=== PATIENT | female | born 1990 | race African-American/Black ===

== ENCOUNTER → 2018-02-28 | Outpatient (CLI) | payer MEDICAID ==
[2018-02-28 12:35] LABS: T.VAGINALIS (WET MOUNT) TRICHOMONAS SEEN
[2018-02-28 12:36] LABS: EPITHELIALS (WET MOUNT) 4+ EPITHELIALS SEEN; RBCS (WET MOUNT) NO RBCS SEEN; WBCS (WET MOUNT) FEW WBCS SEEN; YEAST (WET MOUNT) NO YEAST SEEN
[2018-02-28 14:02] LABS: CHLAM PCR NOT DETECTED (NOT DETECT); GON PCR NOT DETECTED (NOT DETECT)
== END ==
LOC: LAB 12:11
PROVIDERS: ATTEND Nurse Practitioner Acute Care
DX: N89.8 Other specified noninflammatory disorders of vagina (principal)
CPT/HCPCS: 87210; 87491; 87591

== ENCOUNTER 2018-03-29 05:45 | Day surgery (SDC) | payer MEDICAID ==
[2018-03-27 12:25] LABS: HEMATOCRIT 42.8 % (36.0-47.0); HEMOGLOBIN 14.3 g/dL (12.0-15.5); MEAN CORPUSCULAR HEMOGLOBIN 28.6 pg (27.0-33.4); MEAN CORPUSCULAR HGB CONC 33.3 g/dL (32.0-36.0); MEAN CORPUSCULAR VOLUME 86 fl (80-97); PLATELET COUNT 408 10^3/uL (150-450); RED CELL DISTRIBUTION WIDTH 13.1 % (11.5-14.0); WHITE BLOOD COUNT 11.9 10^3/uL (4.0-10.5)
[2018-03-27 12:26] LABS: APPEARANCE,URINE CLEAR; BILIRUBIN,URINE NEGATIVE (NEGATIVE); COLOR,URINE YELLOW; GLUCOSE, URINE NEGATIVE (NEGATIVE); KETONES,URINE NEGATIVE (NEGATIVE); LEUKOCYTE ESTERASE,URINE NEGATIVE (NEGATIVE); NITRITE,URINE NEGATIVE (NEGATIVE); PROTEIN,URINE NEGATIVE (NEGATIVE); URINE SPECIFIC GRAVITY 1.021; UROBILINOGEN,URINE NEGATIVE mg/dL (<2.0)
[2018-03-27 12:53] LABS: ANION GAP 14 (5-19); BLOOD UREA NITROGEN 11 mg/dL (7-20); CARBON DIOXIDE 24 mmol/L (22-30); CHLORIDE 106 mmol/L (98-107); GLUCOSE 76 mg/dL (75-110); POTASSIUM 4.5 mmol/L (3.6-5.0); SODIUM 144.2 mmol/L (137-145)
--- NOTE | 2018-03-27 14:08 | EKG REPORT ---
SEVERITY:- NORMAL ECG - SINUS RHYTHM : Confirmed by: Tai Almanza MD 27-Mar-2018 14:07:45
--- NOTE | 2018-03-28 15:26 | RADIOLOGY REPORT (SQ) ---
EXAM DESCRIPTION: CHEST PA/LATERAL COMPLETED DATE/TIME: 03/27/2018 12:00 pm REASON FOR STUDY: PRE OP COMPARISON: None. EXAM PARAMETERS: NUMBER OF VIEWS: Two view. TECHNIQUE: Frontal and lateral radiographic views of the chest acquired. RADIATION DOSE: N/A LIMITATIONS: None. FINDINGS: LUNGS AND PLEURA: No opacities, masses or pneumothorax. No pleural effusion. MEDIASTINUM AND HILAR STRUCTURES: No masses or contour abnormalities. HEART AND VASCULATURE: Heart normal size. No evidence for failure. BONES: No acute findings. HARDWARE: None OTHER: No other significant finding. IMPRESSION: No acute cardiopulmonary findings. TECHNICAL DOCUMENTATION: JOB ID: [id number] [employer]- All Rights Reserved Reading location - IP/workstation name: [email or web address]
[~2018-03-29 05:45] MED LIST: CEFAZOLIN 1 GM/D5W RTU 1 GM/50 ML RTUPB IV PRN; LACTATED RINGERS 1000 ML IV PRN; LIDOCAINE 0.5% INJ-PF (5 MG/ML) 50 ML SDV SUBCUT PRN
[2018-03-29] MEDS ORDERED: MIDAZOLAM 2 MG/2 ML INJ ONE (06:51)
[2018-03-29] MEDS ORDERED: FENTANYL CITRATE INJ/PF 100 MCG/2 ML AMPUL ONE ×2 (06:51→09:28)
[2018-03-29] MEDS ORDERED: PROPOFOL INJ 200 MG/20 ML VIAL IV ONE (06:52)
[2018-03-29] MEDS ORDERED: HYDROMORPHONE HCL INJ/PF 2 MG/ML AMPULE ONE (06:52)
[2018-03-29] MEDS ORDERED: ACETAMINOPHEN 100 ML IV ONE (06:52)
[2018-03-29] MEDS ORDERED: BUPIVACAINE INJ/PF LIPOSOME/PF 266 MG/20 ML SDV ONE ×2 (07:12→08:20)
[2018-03-29] MEDS ORDERED: LIDOCAINE 1%/EPINEPHRINE INJ 20 ML VIAL ONE (07:28)
[2018-03-29] MEDS ORDERED: ONDANSETRON HCL INJ/PF 4 MG/2 ML SDV IV PRN ×2 (07:52→20:13)
[2018-03-29] MEDS ORDERED: FENTANYL CITRATE INJ/PF 100 MCG/2 ML AMPUL IV PRN ×3 (07:52)
[2018-03-29] MEDS ORDERED: MEPERIDINE HCL/PF INJ 25 MG/1 ML DISP.SYRIN IV PRN (07:52)
[2018-03-29] MEDS ORDERED: PROMETHAZINE HCL INJ 25 MG/1 ML VIAL IV PRN ×2 (07:52)
[2018-03-29] MEDS ORDERED: OXYCODONE-ACETAMINOPHEN 5-325 MG TABLET PO PRN ×4 (07:52→09:27)
[2018-03-29] MEDS ORDERED: DIPHENHYDRAMINE HCL 50 MG/ML VIAL IV PRN (07:52)
[2018-03-29] MEDS ORDERED: FENTANYL CITRATE INJ/PF 250 MCG/5 ML AMPULE ONE (08:00)
--- NOTE | 2018-03-29 08:39 | OPERATIVE REPORT E ---
Operative Report NAME: BALTAZAR SORENSEN : 1990 AGE: 27Y DATE OF SURGERY: 03/29/2018 ROOM: OR PREOPERATIVE DIAGNOSES: 1. Menorrhagia. 2. Uterine leiomyoma. POSTOPERATIVE DIAGNOSES: 1. Menorrhagia. 2. Uterine leiomyoma. PROCEDURE: 1. Mini laparotomy. 2. Multiple myomectomy. SURGEON: BRYAN POLANCO M.D. ANESTHESIA: General endotracheal. COMPLICATIONS: None. FINDINGS: Multiple small leiomyomata, greatest approximately 2 cm, intramural location. Normal tubes and ovaries are appreciated. DESCRIPTION OF PROCEDURE: Patient was taken to the operating room, placed in modified lithotomy position where adequate anesthesia was ascertained, prepped and draped in the usual manner for exploratory laparotomy. A Mckenzie catheter was inserted preop. Surgical time out was performed and antibiotics had been given. Through a mini laparotomy incision inclusive of an old scar, extended through subcutaneous fat and fascia, the dense adhesions were encountered and the peritoneum was entered without difficulty using blunt dissection. Incision was extended laterally and the uterus brought into the operative field. Multiple fibroids were palpated and via separate incisions they were removed, 2 posteriorly and 1 anteriorly, with good hemostasis assured after infiltration of the area with 1% lidocaine with epinephrine. Good hemostasis was assured. The uterus was replaced in the abdominal cavity, copiously irrigated. The rectus fascia was closed with #1 PDS suture in a running fashion. Exparel was used in a diluted fashion in the fascial area for analgesia. Skin was closed with skin meliza. At the conclusion of the procedure all sponge, needle, and instrument counts were correct. DICTATING PHYSICIAN: BRYAN POLANCO M.D. [id number] PHY#: [id number] ID: [id number] JOB#: [id number] ACCT: [id number] cc:BRYAN POLANCO M.D. >
[2018-03-29] MEDS ORDERED: RINGERS SOLUTION,LACTATED 1,000 ML IV PRN (08:41)
[2018-03-29] MEDS ORDERED: MORPHINE SULFATE 10 MG/ML INJ INJ PRN ×4 (08:42→09:28)
[2018-03-29] MEDS ORDERED: MORPHINE SULFATE 10 MG/ML INJ IM PRN ×2 (08:42→09:29)
[2018-03-29] MEDS ORDERED: PROMETHAZINE HCL INJ 25 MG/1 ML VIAL IM PRN (09:29)
[2018-03-29] MEDS: PROMETHAZINE HCL INJ 25 MG/1 ML VIAL IM PRN ×2 (10:50→20:25)
[2018-03-29] MEDS ORDERED: DEXAMETHASONE SOD PHOSPHATE INJ 4 MG/1 ML VIAL ONE (10:55)
[2018-03-29] MEDS ORDERED: ROCURONIUM BROMIDE INJ 50 MG/5 ML VIAL IV ONE (10:55)
[2018-03-29] MEDS ORDERED: ONDANSETRON HCL INJ/PF 4 MG/2 ML SDV ONE (10:55)
[2018-03-29] MEDS ORDERED: METOCLOPRAMIDE HCL INJ/PF 10 MG/2 ML SDV ONE (10:55)
[2018-03-29] MEDS ORDERED: LIDOCAINE 2% INJ-PF (20 MG/ML) 2 ML AMPUL ONE (10:55)
[2018-03-29] MEDS ORDERED: GLYCOPYRROLATE INJ 0.4 MG/2 ML VIAL ONE (10:55)
[2018-03-29] MEDS ORDERED: CEFAZOLIN 1 GM/D5W RTU 1 GM/50 ML RTUPB IV SCH (12:00)
[2018-03-29] MEDS: OXYCODONE-ACETAMINOPHEN 5-325 MG TABLET PO PRN ×2 (12:43→16:24)
[2018-03-29] MEDS: CEFAZOLIN 1 GM/D5W RTU 1 GM/50 ML RTUPB IV SCH ×2 (13:30→18:03)
[2018-03-30] MEDS: OXYCODONE-ACETAMINOPHEN 5-325 MG TABLET PO PRN ×2 (04:00→08:09)
[2018-03-30 08:40] VITALS: BP 120/77
== END 2018-03-30 10:56 | disposition home or self-care (01) ==
LOC: UNDOADMIN 05:45 → OROUT 05:45 → INOR 05:45 → EDSTATUS 07:15 → 2S 10:21 → INOR 10:21 → 2S 10:21 → UNDODISIN 03-30 10:56 → OROUT 03-30 10:56
PROVIDERS: ATTEND Specialist
DX: D25.1 Intramural leiomyoma of uterus (principal); K66.0 Peritoneal adhesions (postprocedural) (postinfection); J45.909 Unspecified asthma, uncomplicated; F17.210 Nicotine dependence, cigarettes, uncomplicated; N92.0 Excessive and frequent menstruation with regular cycle
CPT/HCPCS: 58140; 93005; 86900; 86901; 36415; 86850; 85027; 81025; 80048; 81001; 88305 ×2; 71046; 94799; 93010; J2250; J0690; J3490 ×4; J1100; J3010 ×2; J2765; J2270; J1170; J2550; J2405; J7120; J2704; J0131; C9290; 840

== ENCOUNTER 2018-08-27 12:10 | Emergency (ER) | payer MEDICAID ==
[2018-08-27 12:17] VITALS: BP 119/63
[2018-08-27] MEDS ORDERED: LIDOCAINE 5% (700 MG) TRANSDERMAL ADH..PATCH TP ONE (12:44)
--- NOTE | 2018-08-27 12:47 | ER Document Report ---
HPI - HPI Patient complains to provider of: Eft breast pain Onset/Duration: Persistent Quality of pain: Achy Pain Level: 5 Context: Patient presents complaining of a 3-day history of left lateral breast tenderness. Patient denies any injury to the breast. Patient denies any fever. Patient denies any nipple drainage or discharge. Patient denies any chest pain difficulty breathing cough or cold symptoms. Patient denies any known family history of breast cancer. Associated Symptoms: Other - Breast tenderness. denies: Fever Exacerbated by: Denies Relieved by: Denies Similar symptoms previously: No Recently seen / treated by doctor: No - ROS ROS below otherwise negative: Yes Systems Reviewed and Negative: Yes All other systems reviewed and negative - CARDIOVASCULAR Cardiovascular: REPORTS: Chest pain - Left breast - RESPIRATORY Respiratory: DENIES: Coughing - GASTROINTESTINAL Gastrointestinal: DENIES: Abdominal Pain, Nausea, Patient vomiting - REPRODUCTIVE Reproductive: DENIES: : - MUSCULOSKELETAL Musculoskeletal: DENIES: Back Pain - DERM Skin Color: Normal Skin Problems: None Past Medical History - General Information source: Patient - Social History Smoking Status: Current Every Day Smoker Smoking Education Provided: Yes Frequency of alcohol use: None Drug Abuse: None Occupation: None Family History: Reviewed & Not Pertinent Patient has suicidal ideation: No Patient has homicidal ideation: No - Past Medical History Cardiac Medical History: Denies: Hx Coronary Artery Disease, Hx Heart Attack, Hx Hypertension Pulmonary Medical History: Reports: Hx Asthma Denies: Hx Bronchitis, Hx COPD, Hx Pneumonia, Hx Tuberculosis Neurological Medical History: Denies: Hx Cerebrovascular Accident, Hx Seizures Renal/ Medical History: Reports: Hx Ovarian Cysts. Denies: Hx Peritoneal Dialysis Musculoskeletal Medical History: Reports Hx Arthritis - hands Psychiatric Medical History: Reports: Hx Anxiety Past Surgical History: Reports: Hx Section, Hx Gynecologic Surgery - Partial removal of left ovary. Laparoscopic surgery for a hemorrhagic left - Immunizations Immunizations up to date: No Hx Diphtheria, Pertussis, Tetanus Vaccination: No Vertical Provider Document - CONSTITUTIONAL Agree With Documented VS: Yes Exam Limitations: No Limitations General Appearance: WD/WN, No Apparent Distress - INFECTION CONTROL TRAVEL OUTSIDE OF THE [place] IN LAST 30 DAYS: No - HEENT HEENT: Atraumatic, Normocephalic - NECK Neck: Normal Inspection, Supple. negative: Lymphadenopathy-Left, Lymphadenopathy-Right - RESPIRATORY Respiratory: Breath Sounds Normal, No Respiratory Distress. negative: Chest Non -Tender - Left lateral breast tenderness from the 12:00 to 4 o'clock position, no erythema swelling or abnormal masses appreciated. Normal contour to the breast. No nipple discharge - CARDIOVASCULAR Cardiovascular: Regular Rate, Regular Rhythm - BACK Back: Normal Inspection - MUSCULOSKELETAL/EXTREMETIES Musculoskeletal/Extremeties: MAEW - NEURO Level of Consciousness: Awake, Alert, Appropriate Motor/Sensory: No Motor Deficit - DERM Integumentary: Warm, Dry, No Rash Course - Re-evaluation Re-evalutation: 08/27/18 12:45 Patient without any findings worrisome for breast abscess, no concern for cellulitis. Pain is localized to the breast and not to the chest wall. Patient encouraged to keep her follow-up appointment with her primary doctor as scheduled. Discussed worsening symptoms that patient should return for. - Vital Signs Vital signs: Temp Pulse Resp BP Pulse Ox 98.5 F 88 119/63 100 08/27/18 12:15 08/27/18 12:15 08/27/18 12:15 08/27/18 12:15 Discharge - Discharge Clinical Impression: Breast pain, left Condition: Stable Disposition: HOME, SELF-CARE Instructions: Breast Lumps ([facility]) Additional Instructions: Return immediately for any new or worsening symptoms Followup with your primary care provider, call tomorrow to make a followup appointment Your primary doctor can order an outpatient ultrasound or mammogram for further evaluation of breast pain. Prescriptions: Tramadol HCl [Ultram 50 mg Tablet] 50 mg PO ASDIR PRN #12 tablet PRN Reason: Forms: Smoking Cessation Education Referrals: SHIVANI JOSÉ MD [Primary Care Provider] - Follow up as needed
== END 2018-08-27 12:53 | disposition home or self-care (01) ==
LOC: ER 12:10
DX: N64.4 Mastodynia (principal); F17.200 Nicotine dependence, unspecified, uncomplicated
CPT/HCPCS: 99283; J3490

== ENCOUNTER → 2018-09-12 | Outpatient (CLI) | payer MEDICAID ==
--- NOTE | 2018-09-12 13:31 | WOMENS IMAGING REPORT ---
EXAM DESCRIPTION: U/S BREAST UNILATERAL, COMPL COMPLETED DATE/TIME: 09/12/2018 9:24 am REASON FOR STUDY: UNILATER BREAST U/S /N64.4 LEFT BREAST PAIN N64.4 MASTODYNIA COMPARISON: None. TECHNIQUE: Real-time and static grayscale imaging performed of the left breast targeted to the area of clinical/mammographic concern. Selected color Doppler images recorded. LIMITATIONS: None. FINDINGS: MASS: No mass identified. Normal glandular tissue. OTHER: No other significant finding. IMPRESSION: No suspicious findings detected by ultrasound. BIRAD: 1 Negative. RECOMMENDATION: RECOMMENDED FOLLOW-UP: Follow-up as clinically indicated. COMMENT: The [employer] (A[employer]) has developed recommendations for screening MRI of the breasts in certain patient populations, to be used in conjunction with mammography. Breast MRI s urveillance may be appropriate for women with more than 20% lifetime risk of developing breast cancer as determined by genetic testing, significant family history of the disease, or history of mantle r adiation for Hodgkins Disease. ACR Practice Guidelines 2008. TECHNICAL DOCUMENTATION: JOB ID: [id number] [employer]- All Rights Reserved Reading location - IP/workstation name: [email or web address]
== END ==
LOC: WI 08:30
PROVIDERS: ATTEND Family Medicine
DX: N64.4 Mastodynia (principal)
CPT/HCPCS: 76641

== ENCOUNTER 2018-09-15 17:36 | Emergency (ER) | payer OTHER, MEDICAID ==
[2018-09-15] MEDS ORDERED: KETOROLAC TROMETHAMINE 60 MG/2 ML SDV IM ONE (20:50)
[2018-09-15] MEDS ORDERED: METHOCARBAMOL 500 MG TABLET PO ONE (20:50)
[2018-09-15] MEDS ORDERED: LIDOCAINE 5% (700 MG) TRANSDERMAL ADH..PATCH TP ONE (20:50)
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
[2018-09-15 20:57] LABS: APPEARANCE,URINE CLEAR; BILIRUBIN,URINE NEGATIVE (NEGATIVE); COLOR,URINE YELLOW; GLUCOSE, URINE NEGATIVE (NEGATIVE); KETONES,URINE NEGATIVE (NEGATIVE); LEUKOCYTE ESTERASE,URINE TRACE (NEGATIVE); NITRITE,URINE NEGATIVE (NEGATIVE); PROTEIN,URINE NEGATIVE (NEGATIVE); URINE SPECIFIC GRAVITY 1.024; UROBILINOGEN,URINE NEGATIVE mg/dL (<2.0)
--- NOTE | 2018-09-15 21:37 | RADIOLOGY REPORT (SQ) ---
EXAM DESCRIPTION: XR LUMBAR SPINE ANTEROPOSTERIOR, LATERAL, AND OBLIQUES COMPLETED DATE/TME: 09/15/2018 20:50 CLINICAL HISTORY: 28 years, Female, low back pain COMPARISON: EXAM DESCRIPTION: CLINICAL HISTORY: low back pain COMPARISON: None FINDINGS: Five view(s) submitted. No fracture or dislocation is identified. Bone marrow attenuation is unremarkable. No radiopaque foreign body is identified. IMPRESSION: No acute fracture or dislocation. NUMBER OF VIEWS: TECHNIQUE: LIMITATIONS: None. FINDINGS: IMPRESSION: 2010 [facility] [employer]- All Rights Reserved
[2018-09-15 22:06] VITALS: BP 125/75
== END 2018-09-15 22:06 | disposition home or self-care (01) ==
LOC: ER 17:36
DX: M54.5 Low back pain (principal); F17.210 Nicotine dependence, cigarettes, uncomplicated; Z88.6 Allergy status to analgesic agent
CPT/HCPCS: 99406; 99284; 96372; 81001; 72110; J1885

== ENCOUNTER → 2019-07-18 | Outpatient (CLI) | payer MEDICAID ==
--- NOTE | 2019-07-18 19:19 | RADIOLOGY REPORT (SQ) ---
EXAM DESCRIPTION: ANKLE LEFT COMPLETE COMPLETED DATE/TIME: 07/18/2019 6:56 pm REASON FOR STUDY: M25.572 PAIN IN LEFT ANKLE AND JOINTS OF LEFT FOOT M25.572 PAIN IN LEFT ANKLE AND JOINTS OF LEFT FOOT COMPARISON: None. NUMBER OF VIEWS: Three views. TECHNIQUE: AP, lateral, and oblique radiographic images acquired of the left ankle. LIMITATIONS: None. FINDINGS: MINERALIZATION: Normal. BONES: No acute fracture or dislocation. No worrisome bone lesions. JOINTS: No effusions. SOFT TISSUES: No soft tissue swelling. No foreign body. OTHER: No other significant finding. IMPRESSION: NEGATIVE STUDY OF THE LEFT ANKLE. NO RADIOGRAPHIC EVIDENCE OF ACUTE INJURY. TECHNICAL DOCUMENTATION: JOB ID: [id number] [employer]- All Rights Reserved Reading location - IP/workstation name: [email or web address]
== END ==
LOC: RAD 18:37
PROVIDERS: ATTEND Nurse Practitioner Family
DX: M25.572 Pain in left ankle and joints of left foot (principal)

== ENCOUNTER 2019-08-12 11:13 | Emergency (ER) | payer MEDICAID ==
--- NOTE | 2019-08-12 11:37 | ER Document Report ---
ED Medical Screen (RME) - General Chief Complaint: Nausea/Vomiting Stated Complaint: THROWING UP BLOOD Time Seen by Provider: 08/12/19 11:32 Primary Care Provider: SHIVANI JOSÉ MD [Primary Care Provider] - Follow up as needed Mode of Arrival: Ambulatory Information source: Patient Notes: 28-year-old female presents emergency department with reports of episodes of twice vomiting with blood noted. Reports last time she vomited was pure blood. Denies past medical history of ulcers. Patient is also 4 to 8 weeks. G2, P1. Complains of low abdominal pain denies pain with void. Denies fever. Reports no black stools noted. I have greeted and performed a rapid initial assessment of this patient. A comprehensive ED assessment and evaluation of the patient, analysis of test results and completion of the medical decision making process will be conducted by additional ED providers. Dictation of this chart was performed using voice recognition software; therefore, there may be some unintended grammatical errors. TRAVEL OUTSIDE OF THE [place] IN LAST 30 DAYS: No - Related Data Allergies/Adverse Reactions: ibuprofen [From Motrin] Allergy (Mild, Verified 03/27/18 11:11) abd pain Past Medical History - Past Medical History Cardiac Medical History: Denies: Hx Coronary Artery Disease, Hx Heart Attack, Hx Hypertension Pulmonary Medical History: Reports: Hx Asthma Denies: Hx Bronchitis, Hx COPD, Hx Pneumonia, Hx Tuberculosis Neurological Medical History: Denies: Hx Cerebrovascular Accident, Hx Seizures Renal/ Medical History: Reports: Hx Ovarian Cysts. Denies: Hx Peritoneal Dialysis Musculoskeltal Medical History: Reports Hx Arthritis - hands Psychiatric Medical History: Reports: Hx Anxiety Past Surgical History: Reports: Hx Section, Hx Gynecologic Surgery - Partial removal of left ovary. Laparoscopic surgery for a hemorrhagic left - Immunizations Immunizations up to date: No Hx Diphtheria, Pertussis, Tetanus Vaccination: No History of Influenza Vaccine for 08/2017 - 01/2018 Season: No Physical Exam - Vital signs Vitals: Temp Pulse Resp BP Pulse Ox 98.2 F 96 16 113/60 99 08/12/19 11:17 08/12/19 11:17 08/12/19 11:17 08/12/19 11:17 08/12/19 11:17 Course - Vital Signs Vital signs: Temp Pulse Resp BP Pulse Ox 98.2 F 96 16 113/60 99 08/12/19 11:17 08/12/19 11:17 08/12/19 11:17 08/12/19 11:17 08/12/19 11:17 Doctor's Discharge - Discharge Referrals: SHIVANI JOSÉ MD [Primary Care Provider] - Follow up as needed
[2019-08-12 12:00] LABS: ABSOLUTE BASOPHILS # (AUTO) 0.1 10^3/uL (0.0-0.2); ABSOLUTE EOSINOPHILS # (AUTO) 0.2 10^3/uL (0.0-0.6); ABSOLUTE MONOCYTES (AUTO) 0.7 10^3/uL (0.1-1.4); ABSOLUTE NEUT (AUTO) 9.6 10^3/uL (1.7-8.2); BASOPHILS % (AUTO) 0.8 % (0-2); EOSINOPHILS % (AUTO) 1.3 % (0-6); HEMATOCRIT 40.7 % (36.0-47.0); HEMOGLOBIN 13.6 g/dL (12.0-15.5); MEAN CORPUSCULAR HEMOGLOBIN 28.6 pg (27.0-33.4); MEAN CORPUSCULAR HGB CONC 33.4 g/dL (32.0-36.0); MEAN CORPUSCULAR VOLUME 86 fl (80-97); MONOCYTES % (AUTO) 5.2 % (3-13); PLATELET COUNT 367 10^3/uL (150-450); RED BLOOD COUNT 4.76 10^6/uL (3.72-5.28); RED CELL DISTRIBUTION WIDTH 13.2 % (11.5-14.0); SEGMENTED NEUTROPHILS % (AUTO) 70.7 % (42-78); TOTAL CELLS COUNTED % (AUTO) 100 %; WHITE BLOOD COUNT 13.6 10^3/uL (4.0-10.5)
[2019-08-12 12:05] LABS: APPEARANCE,URINE CLEAR; BILIRUBIN,URINE NEGATIVE (NEGATIVE); COLOR,URINE YELLOW; GLUCOSE, URINE NEGATIVE (NEGATIVE); KETONES,URINE NEGATIVE (NEGATIVE); LEUKOCYTE ESTERASE,URINE NEGATIVE (NEGATIVE); NITRITE,URINE NEGATIVE (NEGATIVE); PROTEIN,URINE NEGATIVE (NEGATIVE); URINE SPECIFIC GRAVITY 1.024; UROBILINOGEN,URINE NEGATIVE mg/dL (<2.0)
[2019-08-12 12:07] LABS: PROTHROMBIN TIME 14.3 SEC (11.4-15.4)
[2019-08-12 12:08] LABS: PARTIAL THROMBOPLASTIN TIME 37.5 SEC (23.5-35.8)
[2019-08-12 12:20] LABS: ALBUMIN 3.9 g/dL (3.5-5.0); ALKALINE PHOSPHATASE 38 U/L (38-126); ANION GAP 7 (5-19); ASPARTATE AMINO TRANSFERASE 15 U/L (14-36); BILIRUBIN,DIRECT 0.1 mg/dL (0.0-0.4); BILIRUBIN,TOTAL 0.6 mg/dL (0.2-1.3); BLOOD UREA NITROGEN 5 mg/dL (7-20); CALCIUM 9.7 mg/dL (8.4-10.2); CARBON DIOXIDE 24 mmol/L (22-30); CHLORIDE 107 mmol/L (98-107); GLUCOSE 77 mg/dL (75-110); POTASSIUM 3.9 mmol/L (3.6-5.0); TOTAL PROTEIN 6.8 g/dL (6.3-8.2)
--- NOTE | 2019-08-12 13:38 | RADIOLOGY REPORT (SQ) ---
EXAM DESCRIPTION: U/S OB TRANSVAGINAL W/O DOP COMPLETED DATE/TIME: 08/12/2019 12:45 pm REASON FOR STUDY: PREG ABD PAIN COMPARISON: None. TECHNIQUE: Transvaginal static and realtime grayscale images acquired of the pelvis. Additional kenna cted spectral and color Doppler images recorded. All images stored on PACs. bHCG: NONE AVAILABLE CLINICAL DATES: Not known LIMITATIONS: None. FINDINGS: FETUS: Single Living intrauterine . ULTRASOUND EGA: 6 weeks 3 days ULTRASOUND MARINA: 04/03/2020 EFW: Not applicable less than 20 weeks. CRL: 6 mm FHR: 113 beats per minute. SURVEY: Too early to assess AMNIOTIC FLUID: Adequate amount. PLACENTA: Not yet developed due to early gestation. SUBCHORIONIC BLEED: No SIZE OF BLEED: Not applicable. UTERUS: No masses. No anomalies. Uterus is 8 x 6 x 5 cm in size CERVICAL LENGTH: Closed, 2 cm in length. No nabothian cysts. RIGHT ADNEXA: Ovary not identified due to poor acoustical window. No adnexal free fluid. No adnexal masses. LEFT ADNEXA: Normal ovary with normal vascular flow. Left ovary is 5.5 x 2.9 x 2.5 cm in size with a 2.2 cm hemorrhagic cyst likely the corpus luteum. No adnexal free fluid. No adnexal masses. FREE FLUID: None. OTHER: No other significant finding. IMPRESSION: LIVING INTRAUTERINE . EGA 6 weeks 3 days Trimester of : First trimester - 0 to 13 weeks. TECHNICAL DOCUMENTATION: JOB ID: [id number] [employer]- All Rights Reserved Reading location - [facility]workstation name: [email or web address]
--- NOTE | 2019-08-12 14:12 | ER Document Report ---
ED GI/ - General Chief Complaint: Nausea/Vomiting Stated Complaint: THROWING UP BLOOD Time Seen by Provider: 08/12/19 11:32 Primary Care Provider: SHIVANI JOSÉ MD [Primary Care Provider] - Follow up as needed Mode of Arrival: Ambulatory Notes: Healthy G2, P1 female presents to the emergency department with chief complaint of nausea and vomiting since this morning. Patient states that she has been nauseated for her entire in the mornings but was concerned because she had bloody vomitus x2 today. Patient thinks it might be related to food she ate yesterday at a cookout. Patient states that it was taylor blood and not blood-tinged sputum or vomit. Denies fevers or chills, complains of lower abdominal pain that she thinks is secondary to retching, denies urinary symptoms, denies abnormal vaginal discharge or vaginal bleeding. No other complaints TRAVEL OUTSIDE OF THE [place] IN LAST 30 DAYS: No - Related Data Allergies/Adverse Reactions: ibuprofen [From Motrin] Allergy (Mild, Verified 08/12/19 11:38) abd pain Past Medical History - General Information source: Patient - Social History Smoking Status: Current Some Day Smoker Chew tobacco use (# tins/day): No Frequency of alcohol use: Occasional Drug Abuse: None Family History: Reviewed & Not Pertinent Patient has suicidal ideation: No Patient has homicidal ideation: No - Past Medical History Cardiac Medical History: Denies: Hx Coronary Artery Disease, Hx Heart Attack, Hx Hypertension Pulmonary Medical History: Reports: Hx Asthma Denies: Hx Bronchitis, Hx COPD, Hx Pneumonia, Hx Tuberculosis Neurological Medical History: Denies: Hx Cerebrovascular Accident, Hx Seizures Renal/ Medical History: Reports: Hx Ovarian Cysts. Denies: Hx Peritoneal Dialysis Musculoskeletal Medical History: Reports Hx Arthritis - hands Psychiatric Medical History: Reports: Hx Anxiety Past Surgical History: Reports: Hx Section, Hx Gynecologic Surgery - Partial removal of left ovary. Laparoscopic surgery for a hemorrhagic left - Immunizations Immunizations up to date: No Hx Diphtheria, Pertussis, Tetanus Vaccination: No Review of Systems - Review of Systems Constitutional: See HPI EENT: No symptoms reported Cardiovascular: See HPI Respiratory: See HPI Gastrointestinal: See HPI Genitourinary: See HPI Female Genitourinary: See HPI Musculoskeletal: No symptoms reported Skin: No symptoms reported Hematologic/Lymphatic: No symptoms reported Neurological/Psychological: No symptoms reported Physical Exam - Vital signs Vitals: Temp Pulse Resp BP Pulse Ox 98.2 F 96 16 113/60 99 08/12/19 11:17 08/12/19 11:17 08/12/19 11:17 08/12/19 11:17 08/12/19 11:17 - Notes Notes: PHYSICAL EXAMINATION: Reviewed vital signs and charting by RN GENERAL: Alert, interacts well. No acute distress. HEAD: Normocephalic, atraumatic. EYES: Pupils equal and round. Extraocular movements intact. ENT: Oral mucosa moist, tongue midline. NECK: Full range of motion. Trachea midline. LUNGS: Clear to auscultation bilaterally, no wheezes, rales, or rhonchi. No respiratory distress. HEART: Regular rate and rhythm. No murmur ABDOMEN: soft, non-tender. No distention. Bowel sounds present EXTREMITIES: Moves all 4 extremities spontaneously. No edema, No cyanosis. PSYCH: Normal affect, normal mood. SKIN: Warm, dry, normal turgor. No rashes or lesions noted. Course - Re-evaluation Re-evalutation: 08/12/19 14:14 Well-appearing in no acute distress. Patient concerned because she vomited with blood this morning, Hemoccult was negative and work-up was overall reassuring, beta hCG greater than 49,000. A transvaginal ultrasound showed a live intrauterine single gestation dated 6 weeks 3 days with no subchorionic bleed. Patient symptoms most consistent with morning sickness and related vomiting. In light of this and normal lab work I instructed the patient to ensure she stays hydrated and to follow-up with her riding teacher. Patient declined any antiemetic here in the emergency department. At this time she is stable for discharge. - Vital Signs Vital signs: Temp Pulse Resp BP Pulse Ox 98.2 F 96 16 113/60 99 08/12/19 11:17 08/12/19 11:17 08/12/19 11:17 08/12/19 11:17 08/12/19 11:17 - Laboratory Result Diagrams: 08/12/19 11:46 08/12/19 11:46 Laboratory results interpreted by me: 08/12/19 08/12/19 08/12/19 11:46 11:46 11:46 WBC 13.6 H Absolute Neuts (auto) 9.6 H APTT 37.5 H BUN 5 L Beta HCG, Quant 16272.00 H Urine Blood 08/12/19 11:46 WBC Absolute Neuts (auto) APTT BUN Beta HCG, Quant Urine Blood SMALL H Discharge - Discharge Clinical Impression: Nausea and vomiting Qualifiers: Vomiting type: unspecified Vomiting Intractability: non-intractable Qualified Code(s): R11.2 - Nausea with vomiting, unspecified Condition: Good Disposition: HOME, SELF-CARE Additional Instructions: You have been seen for vomiting during . You should continue to drink plenty of water and consider taking a solution such as Pedialyte if your having difficulty eating food. Please return if you become unable to drink any fluids for more than 12 hours, urinate less than twice a day, pass out, or have any other symptoms that are concerning to you. For nausea and vomiting during I recommend: Start with 10-12.5 mg of pyridoxine (vitamin B6) three times a day for 2 days. If not fully effective, Increase to 12.5 mg of pyridoxine four times a day for 2 days. If not fully effective, Increase to 25 mg of pyridoxine three times a day for 2 days. If not fully effective, Continue 25 mg pyridoxine 3 times a day, and add 12.5 mg of doxylamine before bedtime each day for 2 days. If not fully effective, Continue 25 mg pyridoxine 3 times a day, and take 12.5 mg of doxylamine twice a day. If not fully effective, Continue 25 mg pyridoxine 3 times a day, and take 12.5 mg of doxylamine three times a day. If not fully effective, Continue 25 mg pyridoxine 3 times a day, and 12.5 mg of doxylamine 3 times a day, while adding Emetrol, one to two tablespoons (15-30 cc) taken once or twice a day as needed. (Emetrol is an [id number] mixture of sugar syrups and phosphoric acid [phosphorylated carbohydrate solution]) that acts by soothing the actual wall of the gastrointestinal tract). If not fully effective consult with your doctor. Referrals: SHIVANI JOSÉ MD [Primary Care Provider] - Follow up as needed
[2019-08-12 14:27] VITALS: BP 115/60
== END 2019-08-12 14:29 | disposition home or self-care (01) ==
LOC: ER 11:13
DX: O21.9 Vomiting of pregnancy, unspecified (principal); O99.611 Diseases of the digestive system complicating pregnancy, first trimester; K92.0 Hematemesis; O26.891 Other specified pregnancy related conditions, first trimester; R10.30 Lower abdominal pain, unspecified; O99.331 Smoking (tobacco) complicating pregnancy, first trimester; F17.200 Nicotine dependence, unspecified, uncomplicated; O99.511 Diseases of the respiratory system complicating pregnancy, first trimester; J45.909 Unspecified asthma, uncomplicated; Z3A.01 Less than 8 weeks gestation of pregnancy; Z88.8 Allergy status to other drugs, medicaments and biological substances
CPT/HCPCS: 36415; 76817; 80053; 81001; 84702; 85025; 85610; 85730; 99284

== ENCOUNTER 2019-08-25 14:39 | Emergency (ER) | payer MEDICAID ==
--- NOTE | 2019-08-25 14:59 | ER Document Report ---
ED Medical Screen (RME) - General Stated Complaint: VAGINAL BLEEDING,PASSING CLOTS Time Seen by Provider: 08/25/19 14:54 Primary Care Provider: SHIVANI JOSÉ MD [Primary Care Provider] - Follow up as needed Mode of Arrival: Ambulatory Information source: Patient Notes: 29-year-old female presents to ED for vaginal bleeding during . She states she is 8 weeks she is 3 para 1. But is O+. Bleeding started after self masturbation. She states that was bleeding at the time. But it is much better now. She states she is having some pelvic pain. Patient is alert oriented respirations regular and unlabored speaking in full sentences walks with even steady gait. I have greeted and performed a rapid initial assessment of this patient. A comprehensive ED assessment and evaluation of the patient, analysis of test results and completion of medical decision making process will be conducted by an additional ED providers. TRAVEL OUTSIDE OF THE [place] IN LAST 30 DAYS: No - Related Data Allergies/Adverse Reactions: ibuprofen [From Motrin] Allergy (Mild, Verified 08/12/19 11:38) abd pain Past Medical History - Past Medical History Cardiac Medical History: Denies: Hx Coronary Artery Disease, Hx Heart Attack, Hx Hypertension Pulmonary Medical History: Reports: Hx Asthma Denies: Hx Bronchitis, Hx COPD, Hx Pneumonia, Hx Tuberculosis Neurological Medical History: Denies: Hx Cerebrovascular Accident, Hx Seizures Renal/ Medical History: Reports: Hx Ovarian Cysts. Denies: Hx Peritoneal Dialysis Musculoskeltal Medical History: Reports Hx Arthritis - hands Psychiatric Medical History: Reports: Hx Anxiety Past Surgical History: Reports: Hx Section, Hx Gynecologic Surgery - Partial removal of left ovary. Laparoscopic surgery for a hemorrhagic left - Immunizations Immunizations up to date: No Hx Diphtheria, Pertussis, Tetanus Vaccination: No Doctor's Discharge - Discharge Referrals: SHIVANI JOSÉ MD [Primary Care Provider] - Follow up as needed
[2019-08-25 15:30] LABS: ABSOLUTE BASOPHILS # (AUTO) 0.1 10^3/uL (0.0-0.2); ABSOLUTE EOSINOPHILS # (AUTO) 0.2 10^3/uL (0.0-0.6); ABSOLUTE LYMPHOCYTES (AUTO) 3.5 10^3/uL (0.5-4.7); ABSOLUTE MONOCYTES (AUTO) 0.8 10^3/uL (0.1-1.4); ABSOLUTE NEUT (AUTO) 10.6 10^3/uL (1.7-8.2); BASOPHILS % (AUTO) 0.3 % (0-2); EOSINOPHILS % (AUTO) 1.4 % (0-6); HEMATOCRIT 36.8 % (36.0-47.0); HEMOGLOBIN 12.3 g/dL (12.0-15.5); LYMPHOCYTES % (AUTO) 23.3 % (13-45); MEAN CORPUSCULAR HEMOGLOBIN 28.7 pg (27.0-33.4); MEAN CORPUSCULAR HGB CONC 33.5 g/dL (32.0-36.0); MEAN CORPUSCULAR VOLUME 86 fl (80-97); MONOCYTES % (AUTO) 5.3 % (3-13); PLATELET COUNT 382 10^3/uL (150-450); RED BLOOD COUNT 4.29 10^6/uL (3.72-5.28); RED CELL DISTRIBUTION WIDTH 13.5 % (11.5-14.0); SEGMENTED NEUTROPHILS % (AUTO) 69.7 % (42-78); TOTAL CELLS COUNTED % (AUTO) 100 %; WHITE BLOOD COUNT 15.2 10^3/uL (4.0-10.5)
[2019-08-25 15:34] LABS: APPEARANCE,URINE SLIGHTLY-CLOUDY; BILIRUBIN,URINE NEGATIVE (NEGATIVE); COLOR,URINE YELLOW; GLUCOSE, URINE NEGATIVE (NEGATIVE); KETONES,URINE NEGATIVE (NEGATIVE); LEUKOCYTE ESTERASE,URINE NEGATIVE (NEGATIVE); NITRITE,URINE NEGATIVE (NEGATIVE); PROTEIN,URINE NEGATIVE (NEGATIVE); URINE SPECIFIC GRAVITY 1.014; UROBILINOGEN,URINE NEGATIVE mg/dL (<2.0)
[2019-08-25 15:43] LABS: ALBUMIN 3.9 g/dL (3.5-5.0); ALKALINE PHOSPHATASE 38 U/L (38-126); ANION GAP 6 (5-19); ASPARTATE AMINO TRANSFERASE 19 U/L (14-36); BILIRUBIN,DIRECT 0.1 mg/dL (0.0-0.4); BILIRUBIN,TOTAL 0.2 mg/dL (0.2-1.3); BLOOD UREA NITROGEN 2 mg/dL (7-20); CALCIUM 9.5 mg/dL (8.4-10.2); CARBON DIOXIDE 25 mmol/L (22-30); CHLORIDE 104 mmol/L (98-107); GLUCOSE 77 mg/dL (75-110); POTASSIUM 4.2 mmol/L (3.6-5.0); TOTAL PROTEIN 6.9 g/dL (6.3-8.2)
--- NOTE | 2019-08-25 15:46 | ER Document Report ---
ED General - General Chief Complaint: Vaginal Bleeding Stated Complaint: VAGINAL BLEEDING,PASSING CLOTS Time Seen by Provider: 08/25/19 14:54 Primary Care Provider: SHIVANI JOSÉ MD [Primary Care Provider] - Follow up as needed Mode of Arrival: Ambulatory Notes: Patient is a 29-year-old female that presents to the emergency department for chief complaint of vaginal bleeding. Patient reports that she was masturbating earlier today, and shortly after started having vaginal bleeding, with a few clots. Has since stopped. She is G3, P1, approximately 8 weeks gravid. She thinks the first day of her last menstrual period was around July 02. She had some minor cramping, but that is since resolved as well. Denies having any pain at this time. She has no other complaints. She states she has had one miscarriage in the past, and that she had attributed that to stress. Denies any recent fevers, chills, night sweats, dysuria, hematuria urinary frequency. Past Medical History: Denies chronic medical conditions Past Surgical History: Social History: Admits to smoking cigarettes, denies alcohol or illicit drug use. Family History: Reviewed and noncontributory for presenting illness Allergies: Reviewed, see documented allergy list. REVIEW OF SYSTEMS: Other than noted above, the 12 point review of systems was reviewed with the patient and were negative, all pertinent findings are included in the HPI. PHYSICAL EXAMINATION: Vital signs reviewed, nursing noted reviewed. GENERAL: Well-appearing, well-nourished and in no acute distress. HEAD: Atraumatic, normocephalic. EYES: Eyes appear normal, extraocular movements intact, sclera anicteric, conjunctiva are normal. ENT: nares patent, oropharynx clear without exudates. Moist mucous membranes. NECK: Normal range of motion, supple without lymphadenopathy LUNGS: Breath sounds clear to auscultation bilaterally and equal. No wheezes rales or rhonchi. HEART: Regular rate and rhythm without murmurs ABDOMEN: Soft, nontender, normoactive bowel sounds. No rebound, guarding, or rigidity. No masses appreciated. EXTREMITIES: Nontender, good range of motion, no pitting or edema. NEUROLOGICAL: No focal neurological deficits. Moves all extremities spontaneously Motor and sensory grossly intact on exam. PSYCH: Normal mood, normal affect. SKIN: Warm, Dry, normal turgor, no rashes or lesions noted on exposed skin TRAVEL OUTSIDE OF THE [place] IN LAST 30 DAYS: No - Related Data Allergies/Adverse Reactions: ibuprofen [From Motrin] Allergy (Mild, Verified 08/12/19 11:38) abd pain Past Medical History - General Information source: Patient - Social History Smoking Status: Unknown if Ever Smoked Family History: Reviewed & Not Pertinent Patient has suicidal ideation: No Patient has homicidal ideation: No - Past Medical History Cardiac Medical History: Denies: Hx Coronary Artery Disease, Hx Heart Attack, Hx Hypertension Pulmonary Medical History: Reports: Hx Asthma Denies: Hx Bronchitis, Hx COPD, Hx Pneumonia, Hx Tuberculosis Neurological Medical History: Denies: Hx Cerebrovascular Accident, Hx Seizures Renal/ Medical History: Reports: Hx Ovarian Cysts. Denies: Hx Peritoneal Dialysis Musculoskeletal Medical History: Reports Hx Arthritis - hands Psychiatric Medical History: Reports: Hx Anxiety Past Surgical History: Reports: Hx Section, Hx Gynecologic Surgery - Partial removal of left ovary. Laparoscopic surgery for a hemorrhagic left - Immunizations Immunizations up to date: No Hx Diphtheria, Pertussis, Tetanus Vaccination: No Physical Exam - Vital signs Vitals: Temp Pulse Resp BP Pulse Ox 98.9 F 87 18 111/53 L 100 08/25/19 14:57 08/25/19 14:57 08/25/19 14:57 08/25/19 14:57 08/25/19 14:57 Course - Re-evaluation Re-evalutation: Patient was seen and examined, vital signs reviewed, patient appeared well on exam, no focal findings on her evaluation. No urinary complaints. Her blood work was ordered by triage, she is not significantly anemic, her urine testing was unremarkable for signs of infection, obstetric ultrasound performed demonstrated single live intrauterine approximately 8 weeks by measurements. Patient made aware of ultrasound findings, and at this point feel the patient be discharged home, she is not having any symptoms and no current vaginal bleeding. Advised to follow-up with the women's health care group. Patient was agreeable to this plan of care and discharged home. - Vital Signs Vital signs: Temp Pulse Resp BP Pulse Ox 98.9 F 87 18 111/53 L 100 08/25/19 14:57 08/25/19 14:57 08/25/19 14:57 08/25/19 14:57 08/25/19 14:57 - Laboratory Result Diagrams: 08/25/19 15:10 08/25/19 15:10 Laboratory results interpreted by me: 08/25/19 08/25/19 08/25/19 15:10 15:10 15:10 WBC 15.2 H Absolute Neuts (auto) 10.6 H Sodium 135.4 L BUN 2 L Urine Blood LARGE H Discharge - Discharge Clinical Impression: Vaginal bleeding during Condition: Stable Disposition: HOME, SELF-CARE Instructions: Bleeding During Early ([facility]) Referrals: [facility] [Provider Group] - Follow up in 3-5 days
--- NOTE | 2019-08-25 16:16 | RADIOLOGY REPORT (SQ) ---
EXAM DESCRIPTION: U/S OB TRANSVAGINAL W/O DOP COMPLETED DATE/TIME: 08/25/2019 4:03 pm REASON FOR STUDY: vaginal bleeding during COMPARISON: 08/12/2019. TECHNIQUE: Transvaginal static and realtime grayscale images acquired of the pelvis. Additional kenna cted spectral and color Doppler images recorded. All images stored on PACs. bHCG: Not applicable. CLINICAL DATES: 8 week 4 day. LIMITATIONS: None. FINDINGS: FETUS: Single Living intrauterine . ULTRASOUND EGA: 8 week 1 day. ULTRASOUND MARINA: 04/04/2020. EFW: Not applicable less than 20 weeks. CRL: 1.68 cm. FHR: 163 beats per minute. SURVEY: No visualized anomalies. AMNIOTIC FLUID: Adequate amount. PLACENTA: Not yet developed due to early gestation. SUBCHORIONIC BLEED: No. SIZE OF BLEED: Not applicable. UTERUS: No masses. No anomalies. CERVICAL LENGTH: 2.1 cm. Closed. RIGHT ADNEXA: Ovary not identified due to poor acoustical window. No adnexal free fluid. No adnexal masses. LEFT ADNEXA: Normal ovary with normal vascular flow. No adnexal free fluid. No adnexal masses. FREE FLUID: None. OTHER: No other significant finding. IMPRESSION: LIVING INTRAUTERINE . EGA 8 WEEK 1 DAY. Trimester of : First trimester - 0 to 13 weeks. TECHNICAL DOCUMENTATION: JOB ID: [id number] [employer]- All Rights Reserved Reading location - IP/workstation name: [email or web address]
[2019-08-25 16:46] VITALS: BP 126/74
== END 2019-08-25 16:46 | disposition home or self-care (01) ==
LOC: ER 14:39
DX: O46.90 Antepartum hemorrhage, unspecified, unspecified trimester (principal); O99.330 Smoking (tobacco) complicating pregnancy, unspecified trimester; F17.210 Nicotine dependence, cigarettes, uncomplicated; O99.519 Diseases of the respiratory system complicating pregnancy, unspecified trimester; J45.909 Unspecified asthma, uncomplicated; Z3A.00 Weeks of gestation of pregnancy not specified; Z88.8 Allergy status to other drugs, medicaments and biological substances
CPT/HCPCS: 36415; 76817; 80053; 81001; 84702; 85025; 99284

== ENCOUNTER 2019-09-27 18:16 | Emergency (ER) | payer MEDICAID ==
[2019-09-27 18:23] VITALS: BP 134/69
--- NOTE | 2019-09-27 19:16 | ER Document Report ---
ED Medical Screen (RME) - General Chief Complaint: Abdominal Pain Stated Complaint: ABDOMINAL CRAMPING WITH Time Seen by Provider: 09/27/19 19:12 Primary Care Provider: SHIVANI JOSÉ MD [Primary Care Provider] - Follow up as needed Mode of Arrival: Ambulatory Information source: Patient Notes: 29-year-old female presents to ED for complaint of abdominal pain during . She states she does not have any vaginal bleeding fevers just the abdominal pain and left abdominal pain. She is alert oriented respirations regular nonlabored speaking in full sentences. On 08/25/2019 she had an ultrasound that said she was 8 weeks and 1 day. 3 para 1 TRAVEL OUTSIDE OF THE [place] IN LAST 30 DAYS: No - Related Data Allergies/Adverse Reactions: ibuprofen [From Motrin] Allergy (Mild, Verified 09/27/19 19:02) abd pain Past Medical History - Social History Chew tobacco use (# tins/day): No Frequency of alcohol use: Rare Drug Abuse: None - Past Medical History Cardiac Medical History: Denies: Hx Coronary Artery Disease, Hx Heart Attack, Hx Hypertension Pulmonary Medical History: Reports: Hx Asthma Denies: Hx Bronchitis, Hx COPD, Hx Pneumonia, Hx Tuberculosis Neurological Medical History: Denies: Hx Cerebrovascular Accident, Hx Seizures Renal/ Medical History: Reports: Hx Ovarian Cysts. Denies: Hx Peritoneal Dialysis Musculoskeltal Medical History: Reports Hx Arthritis - hands Psychiatric Medical History: Reports: Hx Anxiety Past Surgical History: Reports: Hx Section, Hx Gynecologic Surgery - Partial removal of left ovary. Laparoscopic surgery for a hemorrhagic left - Immunizations Immunizations up to date: No Hx Diphtheria, Pertussis, Tetanus Vaccination: No Physical Exam - Vital signs Vitals: Temp Pulse Resp BP Pulse Ox 98.1 F 85 18 134/69 H 100 09/27/19 18:22 09/27/19 18:22 09/27/19 18:22 09/27/19 18:22 09/27/19 18:22 Course - Vital Signs Vital signs: Temp Pulse Resp BP Pulse Ox 98.1 F 85 18 134/69 H 100 09/27/19 18:22 09/27/19 18:22 09/27/19 18:22 09/27/19 18:22 09/27/19 18:22 Doctor's Discharge - Discharge Referrals: SHIVANI JOSÉ MD [Primary Care Provider] - Follow up as needed
[2019-09-27 19:56] LABS: ABSOLUTE BASOPHILS # (AUTO) 0.1 10^3/uL (0.0-0.2); ABSOLUTE EOSINOPHILS # (AUTO) 0.2 10^3/uL (0.0-0.6); ABSOLUTE LYMPHOCYTES (AUTO) 3.6 10^3/uL (0.5-4.7); ABSOLUTE MONOCYTES (AUTO) 0.8 10^3/uL (0.1-1.4); ABSOLUTE NEUT (AUTO) 10.5 10^3/uL (1.7-8.2); BASOPHILS % (AUTO) 0.6 % (0-2); EOSINOPHILS % (AUTO) 1.3 % (0-6); HEMOGLOBIN 12.3 g/dL (12.0-15.5); LYMPHOCYTES % (AUTO) 23.9 % (13-45); MEAN CORPUSCULAR HEMOGLOBIN 29.1 pg (27.0-33.4); MEAN CORPUSCULAR HGB CONC 34.1 g/dL (32.0-36.0); MEAN CORPUSCULAR VOLUME 85 fl (80-97); MONOCYTES % (AUTO) 5.1 % (3-13); PLATELET COUNT 370 10^3/uL (150-450); RED BLOOD COUNT 4.22 10^6/uL (3.72-5.28); RED CELL DISTRIBUTION WIDTH 13.2 % (11.5-14.0); SEGMENTED NEUTROPHILS % (AUTO) 69.1 % (42-78); TOTAL CELLS COUNTED % (AUTO) 100 %; WHITE BLOOD COUNT 15.1 10^3/uL (4.0-10.5)
[2019-09-27 20:19] LABS: ALKALINE PHOSPHATASE 38 U/L (38-126); ANION GAP 10 (5-19); ASPARTATE AMINO TRANSFERASE 19 U/L (14-36); BILIRUBIN,DIRECT 0.1 mg/dL (0.0-0.4); BILIRUBIN,TOTAL 0.3 mg/dL (0.2-1.3); BLOOD UREA NITROGEN 5 mg/dL (7-20); CALCIUM 10.7 mg/dL (8.4-10.2); CARBON DIOXIDE 22 mmol/L (22-30); CHLORIDE 106 mmol/L (98-107); GLUCOSE 76 mg/dL (75-110); POTASSIUM 4.3 mmol/L (3.6-5.0); TOTAL PROTEIN 7.1 g/dL (6.3-8.2)
--- NOTE | 2019-09-27 20:58 | RADIOLOGY REPORT (SQ) ---
EXAM DESCRIPTION: US FOLLOW UP COMPLETED DATE/TME: 09/27/2019 19:16 CLINICAL HISTORY: 29 years, Female, Abdominal pain 12 weeks no vaginal bleed COMPARISON: Prior study from 08/25/2019 TECHNIQUE: Axial 2-D grayscale images of the pelvis were acquired. Doppler was utilized LIMITATIONS: None. FINDINGS: Cervix is closed, measuring 2.7 cm in length. Placenta is anterior, grade 1 heart rate is 135 bpm Largest vertical pocket of amniotic fluid is 3.6 cm measurements are as follows: Biparietal diameter: 2.14 cm Head circumference: 8.5 cm Abdominal circumference: 6.99 cm Femoral length: 1.32 cm Estimated gestational age is 13 weeks and 3 days for an estimated date of delivery of 03/31/2020 presentation is breech IMPRESSION: Single live intrauterine , as above described. No acute sonographic findings. copyright 2010 [employer]- All Rights Reserved
== END 2019-09-27 22:00 | disposition left against medical advice (07) ==
LOC: ER 18:16
DX: O26.891 Other specified pregnancy related conditions, first trimester (principal); R10.9 Unspecified abdominal pain; O99.511 Diseases of the respiratory system complicating pregnancy, first trimester; J45.909 Unspecified asthma, uncomplicated; Z3A.12 12 weeks gestation of pregnancy; Z87.42 Personal history of other diseases of the female genital tract; Z88.8 Allergy status to other drugs, medicaments and biological substances; Z53.20 Procedure and treatment not carried out because of patient's decision for unspecified reasons
CPT/HCPCS: 36415; 76805; 80053; 84702; 85025; 99281

== ENCOUNTER 2019-10-13 10:18 | Emergency (ER) | payer MEDICAID ==
[2019-10-13] MEDS ORDERED: METOCLOPRAMIDE HCL INJ/PF 10 MG/2 ML SDV IV ONE (10:30)
[2019-10-13] MEDS ORDERED: NORMAL SALINE 1000 ML 1,000 ML IV ONE (10:30)
--- NOTE | 2019-10-13 10:31 | ER Document Report ---
ED Medical Screen (RME) - General Stated Complaint: VOMITING Primary Care Provider: SHIVANI JOSÉ MD [Primary Care Provider] - Follow up as needed TRAVEL OUTSIDE OF THE [place] IN LAST 30 DAYS: No - HPI Notes: 10/13/19 10:30 Patient is a 29-year-old female is approximately 15 weeks who presents complaining of sore throats, nausea/vomiting, decreased p.o. intake over the past 1 to 2 days. No fever, cough, chest pain, shortness of breath, vaginal discharge/odor/bleeding, pelvic pain or cramping. I have treated and performed a rapid initial assessment of this patient. A comprehensive ED assessment and evaluation of the patient, analysis of test results and completion of medical decision making process will be conducted by additional ED providers. PHYSICAL EXAMINATION: GENERAL: Well-appearing, well-nourished and in no acute distress. A&Ox4. Answers questions appropriately. Throat: Mild erythema noted without exudates - Related Data Allergies/Adverse Reactions: ibuprofen [From Motrin] Allergy (Mild, Verified 10/13/19 10:28) abd pain Past Medical History - Past Medical History Cardiac Medical History: Denies: Hx Coronary Artery Disease, Hx Heart Attack, Hx Hypertension Pulmonary Medical History: Reports: Hx Asthma Denies: Hx Bronchitis, Hx COPD, Hx Pneumonia, Hx Tuberculosis Neurological Medical History: Denies: Hx Cerebrovascular Accident, Hx Seizures Renal/ Medical History: Reports: Hx Ovarian Cysts. Denies: Hx Peritoneal Dialysis Musculoskeltal Medical History: Reports Hx Arthritis - hands Psychiatric Medical History: Reports: Hx Anxiety Past Surgical History: Reports: Hx Section, Hx Gynecologic Surgery - Partial removal of left ovary. Laparoscopic surgery for a hemorrhagic left - Immunizations Immunizations up to date: No Hx Diphtheria, Pertussis, Tetanus Vaccination: No Doctor's Discharge - Discharge Referrals: SHIVANI JOSÉ MD [Primary Care Provider] - Follow up as needed
[2019-10-13 11:14] LABS: ABSOLUTE BASOPHILS # (AUTO) 0.2 10^3/uL (0.0-0.2); ABSOLUTE EOSINOPHILS # (AUTO) 0.2 10^3/uL (0.0-0.6); ABSOLUTE LYMPHOCYTES (AUTO) 3.3 10^3/uL (0.5-4.7); ABSOLUTE MONOCYTES (AUTO) 0.5 10^3/uL (0.1-1.4); ABSOLUTE NEUT (AUTO) 11.4 10^3/uL (1.7-8.2); EOSINOPHILS % (AUTO) 1.3 % (0-6); HEMOGLOBIN 12.8 g/dL (12.0-15.5); LYMPHOCYTES % (AUTO) 21.2 % (13-45); MEAN CORPUSCULAR HEMOGLOBIN 28.8 pg (27.0-33.4); MEAN CORPUSCULAR HGB CONC 33.7 g/dL (32.0-36.0); MEAN CORPUSCULAR VOLUME 86 fl (80-97); MONOCYTES % (AUTO) 3.4 % (3-13); PLATELET COUNT 376 10^3/uL (150-450); RED BLOOD COUNT 4.44 10^6/uL (3.72-5.28); RED CELL DISTRIBUTION WIDTH 13.1 % (11.5-14.0); SEGMENTED NEUTROPHILS % (AUTO) 73.1 % (42-78); TOTAL CELLS COUNTED % (AUTO) 100 %; WHITE BLOOD COUNT 15.6 10^3/uL (4.0-10.5)
[2019-10-13 11:20] LABS: AMORPHOUS SEDIMENT,URINE TRACE /HPF; APPEARANCE,URINE CLOUDY; BILIRUBIN,URINE NEGATIVE (NEGATIVE); COLOR,URINE YELLOW; GLUCOSE, URINE NEGATIVE (NEGATIVE); KETONES,URINE 20 mg/dL (NEGATIVE); PROTEIN,URINE 30 mg/dL (NEGATIVE); UROBILINOGEN,URINE NEGATIVE mg/dL (<2.0)
[2019-10-13 11:38] LABS: ALBUMIN 4.2 g/dL (3.5-5.0); ALKALINE PHOSPHATASE 34 U/L (38-126); ANION GAP 9 (5-19); ASPARTATE AMINO TRANSFERASE 22 U/L (14-36); BILIRUBIN,DIRECT 0.1 mg/dL (0.0-0.4); BILIRUBIN,TOTAL 0.4 mg/dL (0.2-1.3); BLOOD UREA NITROGEN 4 mg/dL (7-20); CALCIUM 9.4 mg/dL (8.4-10.2); CARBON DIOXIDE 21 mmol/L (22-30); CHLORIDE 106 mmol/L (98-107); GLUCOSE 70 mg/dL (75-110); POTASSIUM 4.1 mmol/L (3.6-5.0); TOTAL PROTEIN 7.6 g/dL (6.3-8.2)
--- NOTE | 2019-10-13 13:15 | ER Document Report ---
ED General - General Chief Complaint: Vomiting Stated Complaint: VOMITING Time Seen by Provider: 10/13/19 10:31 Primary Care Provider: [facility] [Provider Group] - 10/17/19 SHIVANI JOSÉ MD [Primary Care Provider] - Follow up as needed Information source: Patient Notes: 29-year-old female presents emergency department with complaints of vomiting 5 times last night. She has not vomited today. Patient is approximately 15 weeks . She denies pain with void. Denies abdominal pain. Denies fever diarrhea vaginal discharge vaginal bleeding. Patient reports she has had the symptoms throughout this . She reports for the first she had no problems. TRAVEL OUTSIDE OF THE [place] IN LAST 30 DAYS: No - HPI Onset: Yesterday Onset/Duration: Sudden Quality of pain: No pain Associated symptoms: Vomiting Exacerbated by: Denies Relieved by: Denies Similar symptoms previously: Yes Recently seen / treated by doctor: Yes - Related Data Allergies/Adverse Reactions: ibuprofen [From Motrin] Allergy (Mild, Verified 10/13/19 10:28) abd pain Past Medical History - General Information source: Patient Last Menstrual Period: 06/25/19 - Social History Smoking Status: Former Smoker Chew tobacco use (# tins/day): No Frequency of alcohol use: None Drug Abuse: Marijuana Lives with: Family Family History: Reviewed & Not Pertinent Patient has suicidal ideation: No Patient has homicidal ideation: No - Past Medical History Cardiac Medical History: Denies: Hx Coronary Artery Disease, Hx Heart Attack, Hx Hypertension Pulmonary Medical History: Reports: Hx Asthma Denies: Hx Bronchitis, Hx COPD, Hx Pneumonia, Hx Tuberculosis Neurological Medical History: Denies: Hx Cerebrovascular Accident, Hx Seizures Renal/ Medical History: Reports: Hx Ovarian Cysts. Denies: Hx Peritoneal Dialysis Musculoskeletal Medical History: Reports Hx Arthritis - hands Psychiatric Medical History: Reports: Hx Anxiety Past Surgical History: Reports: Hx Section, Hx Gynecologic Surgery - Partial removal of left ovary. Laparoscopic surgery for a hemorrhagic left - Immunizations Immunizations up to date: No Hx Diphtheria, Pertussis, Tetanus Vaccination: No Review of Systems - Review of Systems Notes: Review HPI for review of systems., All other systems negative Physical Exam - Vital signs Vitals: Temp Pulse Resp BP Pulse Ox 98.7 F 95 19 133/59 H 100 10/13/19 10:25 10/13/19 10:25 10/13/19 10:25 10/13/19 10:25 10/13/19 10:25 - Notes Notes: PHYSICAL EXAMINATION: GENERAL: Well-appearing and in no acute distress HEAD: Atraumatic, normocephalic. EYES: extraocular movements intact, sclera anicteric, conjunctiva are normal. ENT: nares patent, oropharynx clear without exudates. Moist mucous membranes. NECK: Normal range of motion, supple without lymphadenopathy LUNGS: CTAB and equal. No wheezes rales or rhonchi. HEART: Regular rate and rhythm without murmurs ABDOMEN: Soft, no tenderness. No guarding, no rebound EXTREMITIES: Normal range of motion, NEUROLOGICAL: Cranial nerves grossly intact. PSYCH: Normal mood, normal affect. SKIN: Warm, Dry, normal turgor, no rashes or lesions noted Course - Re-evaluation Re-evalutation: 10/13/19 13:20 This 29-year-old female presents emergency department G2, P1 15 weeks with complaints of nausea and vomiting throughout this whole . Reports she vomited approximately 5 times yesterday. Patient reports that she is able to drink clear fluids without problems. Reports she is drinking today without problems. Also ate some potato chips while waiting here in the ED but she reports it does not satisfy her. Denies fever or diarrhea. Denies abdominal pain denies pain with void denies vaginal bleeding denies vaginal discharge. Patient has an appointment with her [facility] next week. She reports she does have antinausea medicine but did not take it last night. She has not taken it today. Labs with leukocytosis but suspect it is from vomiting. No shift. UA with a small amount of ketones. Patient is drinking fluids p.o. at this time denies nausea feeling. Has not vomited since last night. Patient was instructed on the importance of taking her antinausea medicines before she became sick. She was also provided with resource information on [id number] treatment for nausea when she is . Patient also admits that she still smokes marijuana. She reports she only does this a couple times a week. We discussed the importance of quit smoking for the health of her baby but also because it can cause hyperemesis. She was instructed to keep her OB appointment next week or return to the emergency department for return of vomiting concerns over dehydration. She verbalized understanding to all information. Dictation of this chart was performed using voice recognition software; therefore, there may be some unintended grammatical errors. - Vital Signs Vital signs: Temp Pulse Resp BP Pulse Ox 98 F 87 14 115/60 100 10/13/19 13:33 10/13/19 13:33 10/13/19 13:33 10/13/19 13:33 10/13/19 13:33 - Laboratory Result Diagrams: 10/13/19 10:59 10/13/19 10:59 Laboratory results interpreted by me: 10/13/19 10/13/19 10/13/19 10:59 10:59 10:59 WBC 15.6 H Absolute Neuts (auto) 11.4 H Sodium 135.8 L Carbon Dioxide 21 L BUN 4 L Glucose 70 L Alkaline Phosphatase 34 L Urine Protein 30 H Urine Ketones 20 H Discharge - Discharge Clinical Impression: Vomiting, Sore throat Condition: Stable Disposition: HOME, SELF-CARE Instructions: Antinausea Medication ([facility]), ([facility]), Sore Throat ([facility]), Vomiting ([facility]) Additional Instructions: *You have been evaluated for nausea/vomiting Your strep test was negative. A throat culture is pending. You may be contacted in 3 to 4 days should you need antibiotics. *Take medication as prescribed *Ensure adequate fluid intake as discussed to prevent dehydration, clear liquids advance as tolerated *Follow up with your [facility]ATOR October 17 as scheduled *Return to ED for worsening condition, changes, needs Referrals: SHIVANI JOSÉ MD [Primary Care Provider] - Follow up as needed [facility] [Provider Group] - 10/17/19
[2019-10-13 13:34] VITALS: BP 115/60
== END 2019-10-13 13:35 | disposition home or self-care (01) ==
LOC: ER 10:18
DX: O21.9 Vomiting of pregnancy, unspecified (principal); J02.9 Acute pharyngitis, unspecified; Z3A.15 15 weeks gestation of pregnancy; Z88.6 Allergy status to analgesic agent
CPT/HCPCS: 36415; 87070; 87880; 83690; 85025; 80053; 81001; J2765; J7030; 87077; 96361; 96374; 99284

== ENCOUNTER 2019-11-04 09:57 | Emergency (ER) | payer MEDICAID | END 2019-11-04 10:26 | disposition left against medical advice (07) | LOC: ER 09:57 | DX: Z53.21 Procedure and treatment not carried out due to patient leaving prior to being seen by health care provider (principal) ==

== ENCOUNTER 2019-11-09 02:42 | Observation (INO) | payer MEDICAID ==
[2019-11-09 03:15] LABS: APPEARANCE,URINE SLIGHTLY-CLOUDY; BILIRUBIN,URINE NEGATIVE (NEGATIVE); COLOR,URINE YELLOW; GLUCOSE, URINE NEGATIVE (NEGATIVE); KETONES,URINE 80 mg/dL (NEGATIVE); LEUKOCYTE ESTERASE,URINE NEGATIVE (NEGATIVE); NITRITE,URINE NEGATIVE (NEGATIVE); PROTEIN,URINE 30 mg/dL (NEGATIVE); URINE SPECIFIC GRAVITY 1.021; UROBILINOGEN,URINE NEGATIVE mg/dL (<2.0)
[2019-11-09 03:28] LABS: URINE AMPHETAMINES SCREEN NEGATIVE; URINE BARBITURATES SCREEN NEGATIVE; URINE BENZODIAZEPINES SCREEN NEGATIVE; URINE COCAINE SCREEN NEGATIVE; URINE METHADONE SCREEN NEGATIVE; URINE PHENCYCLIDINE SCREEN NEGATIVE
[2019-11-09 03:35] LABS: URINE MARIJUANA (THC) SCREEN UNCONFIRMED POSITIVE
--- NOTE | 2019-11-09 03:50 | Admission Physical ---
Datetime Report Generated by CPN: 11/09/2019 03:49 CURRENT ADMISSION Chief Complaint Other: PPROM x 1 Admit Impression : , Intrauterine ; Ruptured Membranes Admit Plan: Admit to Unit; Observation/Evaluation ALLERGIES Medication Allergies: Yes Medication Allergies: ibuprofen/KS/abd pain (11/09/2019) OBSTETRICAL HISTORY EDC: 04/01/2020 00:00 : 3 Para: 1 Term: 1 : 0 SAB: 1 IAB: 0 Ectopic: 0 Livin Cesareans: 1 VBACs: 0 Multiple Births: 0 Obstetrical History Comments: [id number] at 38 weeks for NRFHT G2- 2013 SAB G3- current PHYSICAL EXAM General: Normal HEENT: Normal Neurologic: Normal Thyroid: Normal Heart: Normal Lungs: Normal Breast: Normal Back: Normal Abdomen: Normal Genitourinary Exam: Normal Extremities: Normal DTRs: Normal Pelvic Type: Adequate Vital Signs: Reviewed; Within Normal Limits VAGINAL EXAM Contraction Comments: irregular MEMBRANES Membranes: Bulging FETUS A Monitoring: External US FHR- Baseline: 170s Admit Comment: w/an IUP @ 19-3/7 wks presented to the ED c/o passing some clots. She was sent to [facility]. She states that she had PPROM x 1 week. She was seen in [place] and stayed approx (2) days secondary to a WBC 15k, was given antibiotics and was relaeased when it decreased to 13k. She is now darryn irregularly. Her cervix is 1 cm. Bedside US showed minimal CANELO and fetus in vertex position. She understands that no rescusitation attempts will be made. INFORMED CONSENT Signature: with User ID: [email or web address]
[2019-11-09] MEDS ORDERED: NALBUPHINE HCL INJ 10 MG/1 ML AMPULE INJ ONE ×2 (04:09→15:18)
[2019-11-09] MEDS ORDERED: PROMETHAZINE HCL INJ 25 MG/1 ML VIAL IV ONE (04:09)
[2019-11-09] MEDS ORDERED: PROMETHAZINE HCL INJ 25 MG/1 ML VIAL ONE ×2 (04:10→19:52)
[2019-11-09] MEDS ORDERED: NALBUPHINE HCL INJ 10 MG/1 ML AMPULE ONE ×2 (04:12→15:18)
[2019-11-09 04:13] LABS: ABSOLUTE BASOPHILS # (AUTO) 0.1 10^3/uL (0.0-0.2); ABSOLUTE EOSINOPHILS # (AUTO) 0.2 10^3/uL (0.0-0.6); ABSOLUTE LYMPHOCYTES (AUTO) 3.9 10^3/uL (0.5-4.7); ABSOLUTE MONOCYTES (AUTO) 1.2 10^3/uL (0.1-1.4); ABSOLUTE NEUT (AUTO) 13.6 10^3/uL (1.7-8.2); BASOPHILS % (AUTO) 0.4 % (0-2); HEMOGLOBIN 11.8 g/dL (12.0-15.5); LYMPHOCYTES % (AUTO) 20.7 % (13-45); MEAN CORPUSCULAR HEMOGLOBIN 28.7 pg (27.0-33.4); MEAN CORPUSCULAR HGB CONC 33.7 g/dL (32.0-36.0); MEAN CORPUSCULAR VOLUME 85 fl (80-97); MONOCYTES % (AUTO) 6.3 % (3-13); PLATELET COUNT 366 10^3/uL (150-450); RED BLOOD COUNT 4.11 10^6/uL (3.72-5.28); RED CELL DISTRIBUTION WIDTH 12.9 % (11.5-14.0); SEGMENTED NEUTROPHILS % (AUTO) 71.6 % (42-78); TOTAL CELLS COUNTED % (AUTO) 100 %; WHITE BLOOD COUNT 18.9 10^3/uL (4.0-10.5)
[2019-11-09] MEDS ORDERED: RINGERS SOLUTION,LACTATED 1,000 ML IV PRN ×2 (04:22→16:10)
[2019-11-09] MEDS ORDERED: AMPICILLIN SOD INJ 2 GM VIAL IV ONE (05:55)
[2019-11-09] MEDS ORDERED: AMPICILLIN SOD INJ 2 GM VIAL ONE ×2 (06:13→18:11)
[2019-11-09] MEDS ORDERED: AMPICILLIN SODIUM 2 GM in NORMAL SALINE 100 ML IV ONE (06:15)
[2019-11-09] MEDS ORDERED: AMPICILLIN SODIUM 1 GM in NORMAL SALINE 50 ML IV SCH (12:00)
[2019-11-09] MEDS ORDERED: AMPICILLIN SODIUM IV SCH (12:00)
[2019-11-09] MEDS ORDERED: NORMAL SALINE IV SCH (12:00)
--- NOTE | 2019-11-09 13:35 | RADIOLOGY REPORT (SQ) ---
EXAM DESCRIPTION: U/S OB LIMITED COMPLETED DATE/TIME: 11/09/2019 12:59 pm REASON FOR STUDY: rule out demise COMPARISON: Ultrasound from 11/07/2019. TECHNIQUE: Limited transabdominal grayscale ultrasound for evaluation of specific requested obstetri kyrie parameters. LIMITATIONS: None. FINDINGS: CANELO: Anhydramnios. FHR: 52 beats per minute. PRESENTATION: Breech. PLACENTA: Anterior OTHER: No other findings. IMPRESSION: bradycardia and anhydramnios. TECHNICAL DOCUMENTATION: JOB ID: [id number] [employer]- All Rights Reserved Reading location - IP/workstation name: [email or web address]
[2019-11-09] MEDS ORDERED: GENTAMICIN SULFATE INJ 80 MG/2 ML VIAL IV ONE (14:11)
[2019-11-09] MEDS ORDERED: MISOPROSTOL 0.2 MG TABLET PR ONE ×2 (14:46→21:36)
[2019-11-09] MEDS ORDERED: MISOPROSTOL 0.2 MG TABLET ONE ×2 (14:49→20:25)
[2019-11-09 17:27] LABS: CHLAM PCR NOT DETECTED (NOT DETECT)
[2019-11-09] MEDS ORDERED: ONDANSETRON HCL INJ/PF 4 MG/2 ML SDV IV ONE (17:28)
[2019-11-09] MEDS ORDERED: ONDANSETRON HCL INJ/PF 4 MG/2 ML SDV ONE (17:31)
[2019-11-09] MEDS ORDERED: DOCUSATE SODIUM 100 MG CAPSULE PO SCH (18:00)
[2019-11-09] MEDS ORDERED: DOCUSATE SODIUM 100 MG CAPSULE ONE (18:03)
[2019-11-09] MEDS: AMPICILLIN SOD INJ 2 GM VIAL IV SCH (18:17)
[2019-11-09] MEDS ORDERED: HYDROMORPHONE HCL INJ/PF 2 MG/ML AMPULE IV ONE ×2 (18:42→21:36)
[2019-11-09] MEDS ORDERED: HYDROMORPHONE HCL INJ/PF 2 MG/ML AMPULE ONE ×2 (18:58→20:57)
[2019-11-09] MEDS ORDERED: OXYTOCIN 10 UNIT/ML VIAL ONE (20:25)
[2019-11-09] MEDS ORDERED: LIDOCAINE 1% INJ-PF (10 MG/ML) 30 ML SDV ONE (20:25)
[2019-11-09] MEDS ORDERED: OXYTOCIN/NORMAL SALINE 20 UNIT/1,000 ML RTUINJ ONE (20:25)
[2019-11-09] MEDS ORDERED: BENZOCAINE/MENTHOL AEROSOL SPRAY 56 ML TOP PRN (23:31)
[2019-11-09] MEDS ORDERED: ACETAMINOPHEN 325 MG TABLET PO PRN (23:31)
[2019-11-09] MEDS ORDERED: PROMETHAZINE HCL 25 MG TABLET PO PRN (23:31)
[2019-11-09] MEDS ORDERED: ZOLPIDEM TARTRATE 5 MG TABLET PO PRN (23:31)
[2019-11-09] MEDS ORDERED: PROMETHAZINE HCL INJ 25 MG/1 ML VIAL IV PRN (23:31)
[2019-11-09] MEDS ORDERED: MEASLES,MUMPS&RUBELLA VACC/PF 0.5 ML VIAL SUBCUT PRN (23:31)
[2019-11-09] MEDS ORDERED: PROMETHAZINE HCL 25 MG SUPP.RECT PR PRN (23:31)
[2019-11-09] MEDS ORDERED: MAGNESIUM HYDROXIDE SUSP 30 ML UDCUP PO PRN (23:31)
[2019-11-09] MEDS ORDERED: DIPH/PERTUSS(ACELL)/TETANUS VAC/PF 0.5 ML SYR (>=10YO) IM PRN (23:31)
[2019-11-09] MEDS ORDERED: GLYCERIN/WITCH HAZEL LEAF 1 EACH MED..WIPE TP PRN (23:31)
[2019-11-09] MEDS ORDERED: ACETAMINOPHEN WITH CODEINE #3 TABLET PO PRN (23:31)
[2019-11-09] MEDS ORDERED: DIPHENHYDRAMINE HCL 25 MG CAPSULE PO PRN (23:31)
[2019-11-09] MEDS ORDERED: OXYTOCIN/NORMAL SALINE 20 UNIT/1,000 ML RTUINJ IV PRN (23:31)
[2019-11-09] MEDS ORDERED: PSEUDOEPHEDRINE HCL 30 MG TABLET PO PRN (23:31)
[2019-11-09] MEDS ORDERED: DIBUCAINE 1% OINTMENT 28 GM TP PRN (23:31)
[2019-11-09] MEDS ORDERED: NA PHOS,M-B/NA PHOS,DI-BA (ADULT) 133 ML ENEMA PR PRN (23:31)
[2019-11-10] MEDS ORDERED: AMPICILLIN SOD INJ 2 GM VIAL ONE ×2 (00:07→05:39)
[2019-11-10] MEDS ORDERED: FAMOTIDINE 20 MG TABLET PO ONE (00:15)
[2019-11-10] MEDS: AMPICILLIN SOD INJ 2 GM VIAL IV SCH ×2 (00:23→05:59)
--- NOTE | 2019-11-10 01:46 | Delivery Summary ---
Del Sum A-C Datetime Report Generated by CPN: 11/10/2019 01:46 DELIVERY PERSONNEL DELIVERY PERSONNEL: [id number] Delivery Doctor:: Martine Valdez MD Labor and Delivery Nurse:: Melodie Dinh RN MATERNAL INFORMATION Medications After Delivery: Pitocin Bolus-Please Comment; Cytotec 600mcg Per Rectum/Vagina Meds After Delivery Comment: pitocin 500ml bolus Estimated Blood Loss (ml): 100 Delivery QBL: 100 Maternal Complications: Premature Rupture of Membranes; Other Other Maternal Complications: Cord Prolapse Provider Comments: non viable male fetus delivered double footling breech. Cord doubly clamped and cut. On exam plaecnta still retained. 1000mcg cytotec placed per rectum to assist with delivery of the placenta. Placenta delivered at 2205. QBL for delivery was 100ml. Baby was delivered at 2017, Apgars 0/0, Weight 10.2 oz, 8.5inches. QBL while awaiting placenta delivery was 198ml. No perineal lacerations. Good hemostasis and FF after placenta delivered. Mother is appropriately sad. baby in room - cuddle cot provided LABOR SUMMARY EDC: 04/01/2020 00:00 No. Babies in Womb: 1 Attempted: Yes Labor Anesthesia: IV Sedation LABOR INFORMATION Reason for Induction: Premature Rupture of Membranes; Indicated by Testing; Oligohydramnios; Demise; Other Reason for Induction- Other: Cord Prolapse Onset of Labor: 11/09/2019 19:41 Cervical Ripening Agents: Cytotec @ Oxytocin: N/A Group B Beta Strep: unknown Antibiotics # of Doses: 3 Antibiotics Time of Last Dose: 1809 Name of Antibiotic Given: Ampicillin Steroids Given: None Reason Steroids Not Administered: Not Applicable MEMBRANES Membranes Rupture Method: Spontaneous Rupture of Membranes: 11/04/2019 01:00 Length of Rupture (hr): 139.30 Amniotic Fluid Color: Clear Amniotic Fluid Amount: Scant Amniotic Fluid Odor: Normal STAGES OF LABOR Stage 3 hr: 1 Stage 3 min: 47 Total Time in Labor hr: 2 Total Time in Labor min: 24 VAGINAL DELIVERY Episiotomy: None Laceration #1: None Laceration Extension #1: N/A Laceration Repair: Not Applicable Sponge Count Correct: Yes Sharps Count Correct: Yes CSECTION DELIVERY Primary Indication: N/A Secondary Indication: N/A CSection Incision: N/A BABY A INFORMATION Delivery Date/Time: 11/09/2019 20:18 Method of Delivery: Vaginal Born in Route : No : Successful Forceps: N/A Vacuum Extraction: N/A Shoulder Dystocia : No PRESENTATION/POSITION BABY A Presentation: Breech Cephalic Presentation: N/A Breech Presentation: Double Footling PLACENTA INFORMATION BABY A Placenta Delivery Time : 11/09/2019 22:05 Placenta Method of Delivery: Spontaneous Placenta Status: Delivered SCORES BABY A Heart Rate 1 min: Absent Resp Effort 1 min: Absent Reflex Irritability 1 min: No Response Muscle Tone 1 min: Flaccid Color 1 min: Blue/Pale Resuscitation Effort 1 min: N/A SCORE 1 MIN: 0 Heart Rate 5 min: Absent Resp Effort 5 min: Absent Reflex Irritability 5 min: No Response Muscle Tone 5 min: Flaccid Color 5 min: Blue/Pale Resuscitation Effort 5 min: N/A SCORE 5 MIN: 0 INFANT INFORMATION BABY A Gestational Age at Delivery: 19.3 Gestational Status: - <34 Weeks Infant Outcome : AB < 20 Weeks Condition : Stable Sex: Male CORD INFORMATION BABY A No. Cord Vessels: 3 Nuchal Cord : N/A Suction: None ASSESSMENT BABY A Skin to Skin: No BABY B INFORMATION : N/A SIGNATURES Signature: with User ID: [email or web address]
[2019-11-10] MEDS ORDERED: ACETAMINOPHEN WITH CODEINE #3 TABLET ONE (02:22)
[2019-11-10] MEDS ORDERED: FAMOTIDINE 20 MG TABLET ONE (02:22)
[2019-11-10] MEDS: ACETAMINOPHEN WITH CODEINE #3 TABLET PO PRN ×2 (02:27→07:46)
[2019-11-10 07:49] LABS: HEMATOCRIT 26.5 % (36.0-47.0); MEAN CORPUSCULAR HEMOGLOBIN 29.3 pg (27.0-33.4); MEAN CORPUSCULAR HGB CONC 34.6 g/dL (32.0-36.0); MEAN CORPUSCULAR VOLUME 85 fl (80-97); PLATELET COUNT 288 10^3/uL (150-450); RED BLOOD COUNT 3.13 10^6/uL (3.72-5.28); WHITE BLOOD COUNT 15.6 10^3/uL (4.0-10.5)
[2019-11-10 07:59] LABS: HEMOGLOBIN 9.2 g/dL (12.0-15.5)
[2019-11-10] MEDS ORDERED: PRENATAL VITAMIN W DHA CAPSULE PO SCH (10:00)
[2019-11-10] MEDS ORDERED: DOCUSATE SODIUM 100 MG CAPSULE PO SCH (10:00)
[2019-11-10] MEDS ORDERED: FERROUS SULFATE 325 MG TABLET PO SCH (10:00)
[2019-11-10] MEDS ORDERED: SENNOSIDES/DOCUSATE 8.6-50 MG 1 EACH TABLET PO SCH (10:00)
[2019-11-10] MEDS ORDERED: FAMOTIDINE 20 MG TABLET PO SCH (10:00)
--- NOTE | 2019-11-10 11:03 | PDOC DISCHARGE SUMMARY ---
Final Diagnosis Discharge Date: 11/10/19 - Final Diagnosis (1) Cannabis abuse Is this a current diagnosis for this admission?: Yes (2) demise, less than 22 weeks Is this a current diagnosis for this admission?: Yes (3) premature rupture of membranes (PPROM) with onset of labor after 24 hours of rupture in first trimester, antepartum Is this a current diagnosis for this admission?: Yes (4) Umbilical cord, prolapsed Is this a current diagnosis for this admission?: Yes (5) Vaginal delivery following previous section, delivered Is this a current diagnosis for this admission?: Yes (6) Is this a current diagnosis for this admission?: Yes (7) Vaginal bleeding Is this a current diagnosis for this admission?: Yes Discharge Data - Discharge Medication Home Medications: Docusate Sodium [Colace] 100 mg PO BID 11/09/19 Reason(s) for Admission: Obstetric Complications Procedures: None Intrapartum Procedure(s): Spontaneous Vaginal Delivery - Diagnosis Test Laboratory: Temp Pulse Resp BP Pulse Ox 98.1 F 80 16 94/50 L 100 11/10/19 07:34 11/10/19 07:34 11/10/19 07:34 11/10/19 07:34 11/10/19 07:34 11/09/19 11/09/19 11/10/19 02:50 03:54 07:15 RBC 4.11 3.13 L Hgb 11.8 L 9.2 L D Hct 35.0 L 26.5 L Urine Opiates Screen NEGATIVE - Discharge information/Instructions Discharge Activity: Activity As Tolerated, Energy Conservation, No Lifting/Push/Pulling, Slowly Increase Activity, No tub bath, Walk Frequently Discharge Diet: As Tolerated Disposition: HOME, SELF-CARE Follow [facility] with: [facility] in: 1
[2019-11-10 13:18] VITALS: BP 111/59
[2019-11-10] MEDS: INFLUENZA QUAD (6MOS+) 2019-20 VAC 0.5 ML SYR IM ONE ×2 (13:24→13:48)
== END 2019-11-10 14:20 | disposition home or self-care (01) ==
LOC: LC 02:42 → LR 03:27 → INTOOBSV 03:27 → LR 14:23 → 2S 11-10 02:44
PROVIDERS: ADMIT Obstetrics & Gynecology; ATTEND Obstetrics & Gynecology
DX: O42.112 Preterm premature rupture of membranes, onset of labor more than 24 hours following rupture, second trimester (principal); O69.0XX0 Labor and delivery complicated by prolapse of cord, not applicable or unspecified; O32.8XX0 Maternal care for other malpresentation of fetus, not applicable or unspecified; O34.219 Maternal care for unspecified type scar from previous cesarean delivery; O99.322 Drug use complicating pregnancy, second trimester; F12.10 Cannabis abuse, uncomplicated; O20.9 Hemorrhage in early pregnancy, unspecified; Z37.1 Single stillbirth
CPT/HCPCS: 86900; 86901; 36415 ×2; 86850; 85025; 85027; 86592; 81001; 80307; 87491; 87591; 88307 ×2; 76815; 59612; G0378 ×2; J0290 ×3; J3490 ×6; J2300; J1170; J2550; J2405; J2590; 90686; J7050